=== PATIENT | female | born 1955 | race Caucasian/White ===

== ENCOUNTER 2020-06-01 12:07 | Day surgery (SDC) | payer OTHER, SELFPAY ==
--- NOTE | 2020-06-01 09:26 | HP.PCM_ITS ---
History and Physical Date of Admission: 06/01/20 Chief complaint - need for IV access for chemotherapy History of present illness: 65 y/o WF presents with known left breast cancer s/p left breast lumpectomy with SLNBx on April 24, 2020. Findings of ER/MA positive and Her2 positive breast cancer. She will be receiving adjuvant chemotherapy and requires IV access for this. She was initially scheduled by another surgeon, but it was in mid May and patient did not want to wait that long. She therefore presents to this clinic for placement of portacath in a more expedient time period. She is presently on xarelto for history of PE, years ago, with multiple family members with possible hypercoagulable syndrome, however patient states that she had undergone testing for this and was found to be negative. She denies having had previous central lines. Denies history of clavicular or rib fractures. Denies history of DVT of upper extremities. PAST MEDICAL HISTORY ? Breast cancer (HCC) ? ? Dependent edema ? ? Depression ? ? Essential hypertension ? ? GERD (gastroesophageal reflux disease) ? ? Gouty arthropathy ? ? History of pulmonary embolus (PE) ? ? Hyperlipidemia ? ? intermediate teacher (current) use of anticoagulants ? ? Lumbar degenerative disc disease ? ? Psoriasis ? ? PAST SURGICAL HISTORY ? ANESTHESIA TOTAL KNEE REPLACEMENT Right ? ? BREAST BIOPSY HX ? ? ? BUNIONECTOMY, [place]-TYPE ? ? ? CHOLECYSTECTOMY HX ? ? ? HYSTERECTOMY - JOSEPH/BSO ? ? ? LYMPH NODE BX EX DEEP ? ? ? FAMILY HISTORY ? Hypertension Mother ? ? Heart Attack Father ? ? Breast Cancer Maternal Grandmother ? ? other (Other) Sister ? ? twin ? Mental illness Son ? ? Social History ? Tobacco Use ? Smoking status: Never Smoker ? Smokeless tobacco: Never Used Substance Use Topics ? Alcohol use: Not Currently ? Drug use: Never ? Current Outpatient Medications ? ondansetron (ZOFRAN) 8 mg tablet Take 1 tablet by mouth every 8 hours as needed for Nausea/Vomiting. 30 tablet 1 ? dexamethasone (DECADRON) 4 mg tablet Take 2 tablets twice a day starting the day before chemo, day of chemo, and the day after chemo with each cycle of chemotherapy 72 tablet 0 ? ubidecarenone/vitamin E mixed (COQ10 SG 100 ORAL) Take 1 tablet by mouth. ? ? ? multivitamin with minerals (MULTIPLE VITAMIN-MINERALS) tablet Take 1 tablet by mouth. ? ? ? allopurinol (ZYLOPRIM) 300 mg tablet 1 po q day ? ? ? budesonide-formoterol (SYMBICORT) 160-4.5 mcg/actuation inhaler Inhale 2 Puffs as instructed. ? ? ? SYMBICORT 160-4.5 mcg/actuation inhaler ? utcaakq-snupllfmj-gaetzvn D3 500 mg(1,250mg) -200 unit per tablet Take 2 tablets by mouth. ? ? ? diclofenac sodium (VOLTAREN) 1 % topical gel Apply 2 g to affected area. ? ? ? famotidine (PEPCID) 40 mg tablet Take 40 mg by mouth. ? ? ? loratadine (CLARITIN) 10 mg tablet Take 10 mg by mouth. ? ? ? melatonin 10 mg tab Take 10 mg by mouth. ? ? ? metoprolol succinate ER (TOPROL XL) 50 mg 24 hr tablet Take 50 mg by mouth. ? ? ? pitavastatin 4 mg tab Take 4 mg by mouth. ? ? ? pregabalin (LYRICA) 75 mg capsule ? XARELTO 20 mg tablet ? tiZANidine (ZANAFLEX) 4 mg tablet ? traMADol (ULTRAM) 50 mg tablet ? triamterene-hydrochlorothiazide (MAXZIDE-25) 37.5-25 mg per tablet ? ALLERGIES ? Codeine Itching ? Metronidazole Hives ? Adhesive Tape (Ariela* Hives ? Ibuprofen Hives ? ? REVIEW OF SYSTEMS: General - denies fevers, denies anorexia, denies weight loss Cardiovascular - recent ECHO - normal LV/RV with mild mitral regurgitation and EF >65% (05/22/2020), denies chest pain, denies history of MD Pulmonary - has some shortness of breath with exertion - COPD, denies coughing up blood Gastrointestinal - denies abdominal pain, denies hematemesis, denies blood in stools Neurological - has neuropathy of feet, denies seizures, denies chronic numbness/weakness of extremities, denies chronic headaches Genitourinary - denies burning with urination, denies blood in urine Hematological - had PE 18 years ago was on estrogen, had right lower extremity thrombophlebitis in past, denies spontaneous/prolonged bleeding Skin - denies nonhealing skin wounds Musculoskeletal - had L4-L5 fusion, has neck/back pain Endocrine - denies diabetes, no thyroid problems Psychological ? denies hallucinations ? ? PHYSICAL EXAM: Pulse 87 Temp 98.3 Resp 16 Ht 5' 7.008 (1.70m) Wt 257 lb (116.6kg) SpO2 95% BMI 40.24 kg/(m^2). ? CONSTITUTIONAL: Awake, alert, oriented. HEAD (Incl. face): Normocephalic; Atraumatic. EYES: Pupils are reactive. No scleral icterus. HEENT: No oral exudates. NECK: No thyromegaly. No JVD. HEMATOLOGY/LYMPHATIC: No petechiae or purpura. No tender or palpable lymph nodes in the cervical, supraclavicular, axillary or inguinal areas. RESPIRATORY: Lungs are clear to auscultation. CARDIOVASCULAR: Regular rate and rhythm. 2 + radial pulse. ABDOMEN: Non-tender, soft, positive bowel sounds. BACK/SPINE: No kyphosis or scoliosis. Non tender to palpation. MUSCULOSKELETAL: No tenderness or swelling, normal range of motion without obvious weakness. EXTREMITIES: Tenderness in the back of her left leg. She has marked swelling. INTEGUMENTARY: No rashes or masses. NEURO: No sensory or motor deficits, normal cerebellar function, normal gait, cranial nerves intact. PSYCHIATRIC: Pleasant affect. No signs of agitation. ? ? IMPRESSION Known breast cancer, need for IV access for chemotherapy ? ? DISCUSSION/PLAN: I have discussed the above with the patient. I have offered placement of portacath - right sided. I have explained the procedure to the patient. I have counseled the patient as to the risks of the procedure, including but not limited to: infection, bleeding, scar tissue, injury to the lungs such as hemothorax and/or pneumothorax, thromboses of the veins, non functioning of the port, wound infection, inability to place the port, complications of anesthesia, etc. ? the patient understands. ? The patient was offered a surgery/procedure at a medical facility. The provider and patient have discussed in detail the risk of exposure to and/or potential patricio rm posed by the COVID-19 virus with having a surgery/procedure at this time versus the risk of? delaying the surgery/procedure. It is not possible to know either the risk of delaying the surgery or procedure or chance of getting an infection with perfect accuracy, but a joint decision was made between the patient and the provider ?to proceed at this time with the scheduled surgery/procedure. ? The patient wishes to proceed. I will try to place patient on surgery schedule as soon as feasible. She will need to be off xarelto for this procedure. I have answered all questions to the patient?s satisfaction and the patient has no further questions.
[2020-06-01 12:31] VITALS: BP 96/58; PULSE 79; RESP 16; TEMP 36.8; O2SAT 96; BMI 40.1
[2020-06-01] MEDS: Lactated Ringers 1,000 ML 75 ML IV (12:51)
[2020-06-01] MEDS: Cefazolin 2 GM in 0.9% Normal Saline 100 ML IV (14:34)
--- NOTE | 2020-06-01 14:37 | DCINST_ITS ---
Discharge Diet: No Restrictions Discharge Activity: Return to Normal Activity, May not drive while taking narcotic pain medications. Call your doctor if your incision/area has: Continuous Slow Oozing, Foul Smelling Discharge Call your doctor if you observe: Fever of 101 or Higher Additional Instructions: Recommended pain control regimen - May take 600 mg ibuprofen (Motrin) and then in 3-4 hours, may take 650 mg acetaminophen (Tylenol), then in 3-4 hours may take 600 mg ibuprofen, then in 3- 4 hours may take 650 mg acetaminophen and so on for 2-3 days May take narcotic pain medication for pain that is not controlled by above and at night for comfort through the night May get dressings wet in shower - do not scrub in the area and pat dry Do not soak - no tub baths/swimming Allergies/Adverse Reactions: Allergies adhesive tape Allergy (Verified 06/01/20 12:27) Rash codeine Allergy (Verified 06/01/20 12:27) Hives ibuprofen Allergy (Verified 06/01/20 12:27) Rash metronidazole Allergy (Verified 06/01/20 12:27) Hives Medications to take at Discharge Allopurinol 300 mg PO DAILY 05/29/20 Budesonide/Formoterol 160/4.5 [Symbicort 160/4.5 Mcg Inhaler (SP)] 2 puff INHALATION BID 05/29/20 Calcium Carbonate/Vitamin D3 [Calcium 500-Vit D3 200 Tablet] 1 ea PO DAILY 05/29/20 Diclofenac Sodium [Voltaren] 1 applicatio TP PRN PRN 05/29/20 Doxycycline 100 mg PO PRN PRN 05/29/20 Famotidine 40 mg PO DAILY 05/29/20 Loratadine [Claritin] 10 mg PO DAILY 05/29/20 Melatonin 10 mg PO QHS 05/29/20 Metoprolol(XL)Succ [Toprol Xl (Beta Wilma)] 50 mg PO DAILY 05/29/20 Mv-Mn/Folic AC/Calcium/Vit K1 [Women's 50 Plus Multivit Tab] 1 ea PO DAILY 05/29/20 Pitavastatin Calcium [Livalo] 4 mg PO DAILY 05/29/20 Potassium Chloride 10 meq PO BID 05/29/20 Pregabalin [Lyrica] 75 mg PO BID 05/29/20 Rivaroxaban [Xarelto] 20 mg PO DAILY 05/29/20 Tizanidine HCl [Zanaflex] 4 mg PO QHS 05/29/20 Triamterene 37.5MG/Hctz 25MG [Maxzide 37.5 mg-25 mg Tablet] 1 tab PO DAILY 05/29/20 Ubidecarenone [Coq-10] 100 mg PO DAILY 05/29/20 traMADol [Ultram (G)] 50 mg PO QHS 05/29/20 Hydrocodone Bitart/Apap 5-325 [[place] 5MG-325MG] 1 tablet PO Q8H PRN PRN 4 Days #12 tablet 06/01/20 The following prescriptions were given: Hydrocodone Bitart/Apap 5-325 [[place] 5MG-325MG] 1 tablet PO Q8H PRN PRN 4 Days #12 tablet PRN Reason: Pain Score 4-10/10 Transmission Status: Sent to [facility] Primary Care Physician: Micky Somers MD [Primary Care Provider] - Test Results: Test results from this visit will be discussed in further detail at your follow- up appointment, if applicable.
--- NOTE | 2020-06-01 14:39 | PCM.OPRPT ---
Report of Operation Date of Procedure: 06/01/20 Pre-Operative Diagnosis: left breast cancer, need for IV access for chemotherapy Post-Operative Diagnosis: same Surgery/Procedure Performed:: placement of permanent indwelling tunneled catheter in right internal jugular vein with subcutaneous port Description of Surgical Findings:: normal right IJ anatomy to SVC Type of Anesthesia:: Local MAC Anesthesiologist: Brie Dowd Specimen's removed: none Estimated Blood Loss (mL): 10 ml Fluids Replaced: 600 ml RO Description of Procedure: After informed consent was given, the patient was brought to the Operating Room. Appropriate time out protocol was followed. The patient was then placed in the supine position. The patient was then given IV conscious sedation for anesthesia. The patient?s upper chest and neck were then prepped with a surgical skin preparation and sterile surgical drapes were placed. After proper landmarks were ascertained, the skin at the upper right chest area was then infiltrated with 1% xylocaine with epinephrine. A needle trocar was then inserted into the right subclavian vein and there was good aspiration of venous blood. A wire was then attempted to be threaded into the needle trocar however at this point, the patient moved and the needle trocar was no longer in the subclavian vein. Therefore the needle and wire were removed and pressure applied to this location. The patient was then placed under general LMA anesthesia. The ultrasound machine was then use for real time imaging. The US transducer was brought into the operative field. The right internal jugular vein was thus identified with the ultrasound probe. The needle trocar was inserted into the right internal jugular vein and this was visualized using ultrasound. There was good aspiration of venous blood. The wire was then inserted into the needle and and this was visualized under fluoroscopy to ensure that the wire was in the right internal jugular vein. Once this was done, then the needle trocar was removed. A small skin chriss was made with an 11 blade knife at the wire entrance site. The dilator with the introducer sheath attached was then placed over the wire into the right internal jugular vein via the Seldinger technique and this was visualized under fluoroscopy. The dilator and sheath were in proper position as visualized by fluoroscopy in real time. The wire and dilator were then removed. The catheter was then threaded into the introducer sheath and was positioned with its tip at the junction of the superior vena cava and the right atrium as visualized under fluoroscopy in real time. I personally reviewed all of the above fluoroscopic images and noted that the positions of the wire and catheter were correct so that the next step could be conducted. The catheter was flushed with a heparin saline mixture prior to placement. A subcutaneous pocket was then created caudad to the catheter insertion site. A transverse skin incision was made after the skin and subcutaneous tissues were infiltrated with local anesthetic. Blunt dissection was then used to create a space large enough for placement of the subcutaneous port. Hemostasis was carefully controlled with electrocautery. The port was sutured to the subcutaneous fascia using vicryl suture at three sites. The catheter was then tunneled into the subcutaneous pocket. The excess catheter was transected. The catheter was then attached to the subcutaneous port using middle school guidance counselor?s guidelines. The port was then placed in the subcutaneous pocket and the sutures were ligated. The subdermal incisional sites were reapproximated with interrupted vicryl suture. The skin was reapproximated with monocryl suture in a subcuticular fashion. Cavilon and steristrips were used for reinforcement of the skin closure and a sterile opsite dressing was applied. Sponge, needle, and instrument count were verified and correct at the time of skin closure. The patient was brought to the Recovery Room in stable condition Grafts/Implants Used: Power Port Bard, 8Fr Lot [id number], exp 2021-07-28 - Complications none noted - Admit VTE Documentation VTE Present on Admission: Yes VTE Mechan Device Prophylaxis: SCD's
[2020-06-01 16:22] VITALS: BP 147/84; BP 96/48; PULSE 87; RESP 16; TEMP 36.3; O2SAT 96
[2020-06-01 16:30] VITALS: BP 137/86; BP 96/48; PULSE 86; RESP 16; O2SAT 95
[2020-06-01 16:45] VITALS: BP 141/87; BP 96/48; PULSE 78; RESP 16; O2SAT 95
--- NOTE | 2020-06-01 16:50 | RAD_ITS ---
STUDY: X-RAY CHEST REASON FOR EXAM: Female, 65 years old. PORT PLACEMENT TECHNIQUE: Single AP portable view of the chest. COMPARISON: None. FINDINGS: Right internal jugular chest port with tip of the catheter overlying the distal superior vena cava. No pneumothorax. Status post left axillary lymph node dissection. The lungs are clear and expanded. There is no demonstrated pleural abnormality. Normal size heart. Normal mediastinum and vero. Normal visualized pulmonary arteries. Normal visualized aortic arch and descending thoracic aorta. Normal visualized thoracic spine. Normal visualized ribs, clavicles, and shoulders. There is no demonstrated abnormality of the visualized soft tissue structures of the upper abdomen. RAD/CXR for Line Placement IMPRESSION: 1. Right internal jugular chest port with tip of the catheter overlying the distal superior vena cava and no pneumothorax. 2. No active disease. Electronically Signed: Humza Styles MD at 17:29 EDT Tel , Service support ,
[2020-06-01 16:53] VITALS: BP 133/79; BP 96/48; PULSE 78; RESP 16; TEMP 36.4; O2SAT 98
[2020-06-01] MEDS: HYDROcodone Bitartrate/Apap 5/325 Tablet PO (17:18)
[2020-06-01 17:41] VITALS: BP 137/90; BP 96/48; PULSE 84; RESP 16; TEMP 36.5; O2SAT 96
== END 2020-06-01 17:44 | disposition home or self-care (01) ==
LOC: SDC 12:10 → AC 12:10
PROVIDERS: Referring Provider Surgery; Visit Provider Surgery
PROC: (CPT 36561; principal; 2020-06-01 13:45)
DX: Z45.2 Encounter for adjustment and management of vascular access device (principal); C50.912 Malignant neoplasm of unspecified site of left female breast; Z17.0 Estrogen receptor positive status [ER+]; I10 Essential (primary) hypertension; E78.00 Pure hypercholesterolemia, unspecified; K21.9 Gastro-esophageal reflux disease without esophagitis; G62.9 Polyneuropathy, unspecified; M10.9 Gout, unspecified; M51.36 Other intervertebral disc degeneration, lumbar region; F32.9 Major depressive disorder, single episode, unspecified; Z86.711 Personal history of pulmonary embolism; Z79.01 Long term (current) use of anticoagulants; Z79.51 Long term (current) use of inhaled steroids; Z79.899 Other long term (current) drug therapy
CPT/HCPCS: 00532; 36561; 71045; 77001; J7120; C1788; J2405